=== PATIENT | female | born 1990 | race African-American/Black ===

== ENCOUNTER 2016-11-09 09:16 | Inpatient (IN) ==
[2016-11-09] MEDS ORDERED: KETOROLAC 30 MG/1 ML VIAL IV STA (09:47)
--- NOTE | 2016-11-09 09:51 | Emergency Department Note ---
Arrival - Arrival Chief Complaint: Abdominal / Flank Pain Stated Complaint: right and lower abd pain ED Nursing Triage Note: Pt c/o right sided abd pain since Feb which she was told it was a ovarian cyst. Pt was seen at [facility] yesterday but not given pain meds. Mode of Arrival: Wheelchair Limitations: No Limitations Source: Patient, RN Notes Reviewed Time Seen by Provider: 11/09/16 09:43 - History of Present Illness HPI Narrative: Patient is a 25-year-old black female seen today complaining of right lower quadrant abdominal pain which is been ongoing for 10 months. The patient states the pain became worse yesterday. Last normal menstrual period was 5 days ago. Patient states that she was seen yesterday at [facility] and underwent evaluation which included a CT scan of the abdomen and was told that she had an ovarian mass. Patient has had some nausea. She denies any vomiting. Patient was seen in the emergency department yesterday by Dr. Archuleta. The patient states that she did not undergo an ultrasound. Onset (ago): month(s) (10) Consistency: constant Severity: moderate, severe Date of Last Menstrual Period: went off yesterday Allergies/Adverse Reactions: Allergies Allergy/AdvReac Type Severity Reaction Status Date / Time No Known Allergies Allergy Verified 12/20/15 17:15 Home Medications: Home Medications Medication Instructions Recorded Confirmed Type No Known Home Medications [No 11/09/16 11/09/16 History Known Home Medications] Review of System - Review of System 12 point system: reviewed and no additional remarkable complaints except as stated Medical,Surgical,& Family Hx - Social History Smoking Status: Current every day smoker Exam Vital Signs: Vital Signs Temperature 99.5 F 11/09/16 09:54 Pulse Rate 96 H 11/09/16 09:54 Respiratory Rate 18 11/09/16 09:54 Blood Pressure 132/84 11/09/16 09:54 O2 Sat by Pulse Oximetry 100 11/09/16 09:22 GENERAL: This is a well-nourished well-developed obese white female in no apparent distress. VITAL SIGNS: Reviewed HEENT: Head is atraumatic and normocephalic. Pupils are equal round react to light. Extraocular movements are intact. Oropharynx is benign with moist mucous membranes. NECK: Neck is soft and supple without tenderness. There are no masses. There is no lymphadenopathy. LUNGS: Lungs are clear to auscultation. Chest rises symmetrically. There is no chest wall tenderness. CV: Heart is regular rate and rhythm without murmurs rubs or gallops. ABDOMEN: Abdomen is soft, tender to palpation the right lower quadrant without rebound or guarding. There are no abdominal abnormal masses palpated. There is no organomegaly. Bowel sounds are present and active. SKIN: Skin is warm and dry. No rash. EXTREMITIES: Patient has full range of motion without tenderness. There is no pedal edema. NEUROLOGIC: Awake alert and oriented. Cranial nerves II through XII are intact. Motor is 5 over 5 in all extremities bilaterally. Course Course Narrative: Records obtained from [facility] visit yesterday. - Consultations Consultation #1: Discussed with Dr. Greer. Patient will be admitted to his service. Initial orders written for him. He will assume care of the patient upon patient's arrival to the [facility]. Time: 11:34 Results - Labs Lab Results: I have reviewed the patients labs Labs: Laboratory Tests 11/09/16 11/09/16 10:33 10:33 Urine pH 7.0 Ur Specific Adams 1.012 Urine RBC <1 Urine WBC 2 Urine Test Negative - Diagnostic Findings Procedure: CT Abdomen and Pelvis: report reviewed by me (CT abdomen and pelvis performed at [facility] yesterday: Patient has large mass originating from the adnexa which appears to be 29 cm in size.), Ultrasound: report reviewed by me (Large right ovarian mass possible neoplasm. This measures 26 cm) Disposition Clinical Impression: Ovarian mass Case discussed with: patient, patient's family Disposition: Still a Patient Condition: Stable
[2016-11-09] MEDS ORDERED: KETOROLAC 30 MG/1 ML VIAL ONE (10:00)
--- NOTE | 2016-11-09 10:58 | Ultrasound Report ---
Exam: US pelvic complete, both transabdominal and transvaginal images Date: 11/09/2016 9:59 AM Comparison: None Indication: Ovarian mass Findings: Real-time ultrasound images are captured and archived. There is a large cystic right adnexal mass extending superior to the umbilical area. This mass measures 26 x 18 x 22 cm maximum dimensions. This has some moderate particularly internal debris and some mild mural nodularity. The right ovary is not seen separate from this mass. No masses of the uterus or left ovary are seen. No additional masses are seen. The exam was performed with transabdominal technique initially. Transvaginal images were obtained because of nonvisualization of the ovaries transabdominally. Uterus:9.1 cm x 3.1 cm x 4.4 cm Endometrial Thickness: Endometrial echo not seen Right ovary: Not seen separately from mass Left ovary:2.6 cmx3.8 cmx2 cm Free fluid: Moderate amount Bladder: Mildly distended but grossly unremarkable Impression: 26 cm complex right adnexal mass, presumably originating from the right ovary. This should be considered right ovarian neoplasm until proven otherwise. PROCEDURE INTERPRETED AT [facility] DEPARTMENT OF RADIOLOG[facility] Final Report Signed by: Dr. Brandy Hernandez
[2016-11-09 10:59] LABS: Apearance,Urine Slightly Hazy (Clear); Bilirubin,Urine Negative (Negative); Blood, Urine Negative (Negative); Glucose,Urine (UA) Negative (Negative); Ketones,Urine Negative (Negative); Mucus,Urine Occasional /LPF (Occasional); Nitrite,Urine Negative (Negative); Protein,Urine Negative; RBC,Urine <1 /HPF (0-4); Squamous Epithelial Cell,Urine Occasional /HPF (0-10); Urine Color Yellow (Yellow); Urine Specific Gravity 1.012 (1.001-1.035); Urine Urobilinogen < 2.0 EU/DL (0.2-1.0); WBC,Urine 2 /HPF (0-6)
[2016-11-09] MEDS ORDERED: HYDROmorphone 2 MG/1 ML VIAL IV STA (11:32)
[2016-11-09] MEDS ORDERED: ONDANSETRON 4 MG/2 ML VIAL IV STA (11:32)
[2016-11-09] MEDS ORDERED: HYDROmorphone 2 MG/1 ML VIAL ONE (11:33)
[2016-11-09] MEDS ORDERED: ONDANSETRON 4 MG/2 ML VIAL ONE (11:33)
[2016-11-09] MEDS ORDERED: ACETAMINOPHEN 325 MG TABLET PO PRN (13:17)
[2016-11-09] MEDS ORDERED: ONDANSETRON 4 MG/2 ML VIAL IV PRN (13:17)
[2016-11-09] MEDS ORDERED: BISACODYL 10 MG SUPP RECTAL PRN (13:17)
[2016-11-09] MEDS ORDERED: MAGNESIUM HYDROXIDE SUSP 30 ML UDCUP PO PRN (13:17)
[2016-11-09 13:39] LABS: Basophils % 0.1 % (0.0-0.8); Eosinophils # 0.3 10*3/uL (0.0-0.87); Eosinophils % 3.9 % (0.00-10.9); Hematocrit 33.8 VOL% (35.7-47.0); Hemoglobin 10.7 GM/DL (12.0-16.0); Immature Granulocytes % 0.3 %; Immature Granulocytes Absolute 0.02 #; Lymphocytes # 1.9 10*3/uL (1.4-4.0); Lymphocytes % 26.1 % (21.3-54.2); Mean Corpuscular HGB Conc 31.7 GM/DL (32-36); Mean Corpuscular Hemoglobin 25 PG (27-34); Mean Corpuscular Volume 78.1 FL (87-102); Monocytes # 0.4 10*3/uL (0.11-0.8); Monocytes % 5.6 % (1.7-12.7); Neutrophils # 4.6 10*3/uL (1.4-7.4); Platelet Count 264 T/CUMM (130-400); Red Blood Count 4.33 MC/CUMM (3.8-5.5); White Blood Count 7.1 T/CUMM (4-12)
[2016-11-09 13:55] LABS: INR 1.1; PT Patient Result 11.1 SECS
[2016-11-09] MEDS: LACTATED RINGERS 1,000 ML IV SCH ×2 (14:13→21:23)
[2016-11-09 14:19] LABS: Bilirubin,Total 0.5 MG/DL (0.2-1.0); Calcium 8.6 MG/DL (8.5-10.1); Osmolality,Calculated 274.5 MOS/KG (273-304); Potassium 3.9 MMOL/L (3.5-5.1); Total Protein 7.7 G/DL (6.4-8.3)
[2016-11-09] MEDS: HYDROmorphone 2 MG/1 ML VIAL IV PRN (15:37)
--- NOTE | 2016-11-09 18:16 | OB/GYN History & Physical ---
History of Present Illness Chief complaint: Pelvic pain with 26 cm right ovarian mass History of present illness: Ms. Gambino is a 25 year old female With history of 26 cm right ovarian mass. Patient is symptomatic and was seen in [facility] over the weekend and was told to follow-up with [facility]. Patient has been seen before in [place] and patient states that she was refused treatment because she did not have insurance. She consequently presented to [facility] emergency room with pelvic pain with confirmed 26 cm complex cystic mass encompassing and replacing the right ovary. She is consequently admitted for laparotomy with right ovarian cystectomy versus right salpingo-oophorectomy. Will have stent placement by in the morning. Will bowel prep the patient tonight. The risks benefits alternatives were explained patient detail and informed consent was attained for the above procedures and all the patient's and family's questions were answered to their satisfaction and agree with the course of management Home Medications Medication Instructions Recorded Confirmed Type No Known Home Medications [No 11/09/16 11/09/16 History Known Home Medications] Allergies Allergy/AdvReac Type Severity Reaction Status Date / Time No Known Allergies Allergy Verified 12/20/15 17:15 - Gastrointestinal Gastrointestinal: Present: abdominal pain Medical,Surgical,& Family Hx - Family History Family History: Denies;: Family Cancer, Family Diabetes, Family Heart Disease, Family Hematology, Family Hypertension, Family Psychiatric Problems - Social History Smoking Status: Current every day smoker Frequency of Alcohol Use: None Type of Drug Use: None Exam SLUBBER HAND - Constitutional Vitals: Vital Signs Temp Pulse Resp BP BP Pulse Ox 11/09/16 15:57 97.5 F L 18 97/49 11/09/16 12:56 85 18 138/89 98 11/09/16 09:54 99.5 F 96 H 18 132/84 11/09/16 09:22 99.5 F 96 H 24 132/84 100 General appearance: morbidly obese - Head Head exam: Present: normal inspection, normocephalic - Eye Eye exam: Present: EOMI - Neck Neck exam: Present: normal inspection - Respiratory Respiratory exam: Present: clear to auscultation bilaterally - Breast Breasts: as per HPI Menstruation: as per HPI - Cardiovascular Cardiovascular exam: Present: regular rate and rhythm - GI/Abdominal GI/Abdominal exam: Present: normal bowel sounds - Extremities Exam Extremities exam: Present: normal inspection, normal capillary refill - Back Exam Back exam: Present: normal inspection - Neurological Exam Neurological exam: Present: alert, oriented X3 - Psychiatric Psychiatric exam: Present: normal affect, normal mood - Skin Skin exam: Present: normal color, warm Assessment and Plan (1) Pelvic pain in female Status: Acute Current Visit: Yes (2) Complex cyst of right ovary Status: Acute Current Visit: Yes Results - Labs CBC & BMP: 11/09/16 13:32 11/09/16 13:32
--- NOTE | 2016-11-09 19:00 | Urology Consultation ---
Assessment and Plan - Time spent with patient Time spent with patient: Less than 30 minutes (1) Ovarian mass Status: Acute Assessment and plan: She has a complex cystic mass replacing the right ovary measuring up to [address] Greer is planning for surgery tomorrow. I have been asked for cystoscopy with stent placement prior. I have had a discussion today with her. She understands the risks, benefits, and alternatives. She understands that the stent allows for better identification. I have explained that with a cystic mass is often significant amount of desmoplastic and inflammatory changes. The stent does not prevent any injury, as sometimes this is unavoidable. It will allow better identification of injury, and hopefully repair if needed. She is n.p.o. after midnight. Her urinalysis is unremarkable for UTI. I discussed with Dr. Peterson in the morning, and will try to coordinate. Plan for cystoscopy with ureteral stent placement. Likely I will leave a string, and if procedure goes well her stent may be removed postoperative. Thanks for the opportunity to participate in her care. Current Visit: Yes History of Present Illness - Data of Consult Patient: new to practice Consult date: 11/09/16 Requesting Physician: Aaron Greer - Consult Narrative History of present illness: Ms. Gambino is a 25 year old female who is admitted for a complex cystic ovarian mass. She reports she is having pain and diagnosis for several months. She notes that her first symptoms started in February. She has been seen by several hospitals, but had not had treatment due to insurance problems. She had a CT scan at [facility] on November 06, 2016, and report indicates no hydronephrosis but a 29 cm right sided pelvic mass. She reports some right sided abdominal pain and occasional right flank pain. She denies gross hematuria. She denies urinary voiding symptoms. No dysuria, hematuria, frequency, urgency, or urinary incontinence. She reports 1 prior D&C in the past. She denies prior . She does have a history of smoking. She denies any significant family history of urologic problems. Due to this large pelvic mass I was consulted for cystoscopy with stent placement prior to her gynecologic procedure. CC: Elmer Castillo Right sided pelvic mass - Home Medications and Allergies Home Medications: Home Medications Medication Instructions Recorded Confirmed Type No Known Home Medications [No 11/09/16 11/09/16 History Known Home Medications] Allergies/Adverse Reactions: Allergies Allergy/AdvReac Type Severity Reaction Status Date / Time No Known Allergies Allergy Verified 12/20/15 17:15 Medical,Surgical,& Family Hx - Medical History Hematology: History of: Anemia Reproductive: History of: Ovarian Cysts - Surgical History Reproductive Surgeries: Surgical HX of;: Dilation and Curettage - Family History Family History: Denies;: Family Cancer, Family Diabetes, Family Heart Disease, Family Hematology, Family Hypertension, Family Psychiatric Problems - Social History Smoking Status: Current every day smoker Frequency of Alcohol Use: None Type of Drug Use: None 12 point system: reviewed and no additional remarkable complaints except as stated - Constitutional Constitutional: Present: fatigue - Gastrointestinal Gastrointestinal: Present: abdominal pain, bloating - Genitourinary Genitourinary: Absent: difficulty urinating, dysuria, flank pain, hematuria Exam - Constitutional Vitals: Period Temp Pulse Resp BP Sys/Coleman Pulse Ox Last 24 Hr 97.5 F-99.5 F 85-96 18-24 97-138/49-89 98-100 General appearance: no acute distress, morbidly obese - Head Head exam: Present: normal inspection, normocephalic - Eye Eye exam: Present: EOMI. Absent: scleral icterus - ENT ENT exam: Present: normal oropharynx - Neck Neck exam: Present: normal inspection. Absent: lymphadenopathy - Respiratory Respiratory exam: Present: clear to auscultation bilaterally. Absent: rales, rhonchi - Cardiovascular Cardiovascular exam: Present: regular rate and rhythm. Absent: JVD - GI/Abdominal GI/Abdominal exam: Present: normal bowel sounds, tenderness (Mild right sided abdominal pain), soft. Absent: rebound - Genitourinary Genitourinary: external genitalia normal - Extremities Exam Extremities exam: Present: normal inspection. Absent: calf tenderness - Back Exam Back exam: Absent: CVA tenderness (L), CVA tenderness (R) - Neurological Exam Neurological exam: Present: alert, oriented X3 - Psychiatric Psychiatric exam: Present: normal affect, normal mood - Skin Skin exam: Present: warm, dry Results - Labs CBC & BMP: 11/09/16 13:32 11/09/16 13:32 Lab Results: I have reviewed the past 24 hour labs - Diagnostic Findings Procedure: CT Abdomen and Pelvis: report reviewed by me (CT report from [facility] on November 06, 2016. I have no images to review of this. No hydronephrosis or urinary obstruction noted), Ultrasound: image reviewed by me ( Reviewed pelvic ultrasound with large right sided cystic mass)
[2016-11-09] MEDS: SODIUM PHOSPHATE ENEMA 133 ML BOTTLE RECTAL PRN ×2 (21:22→22:39)
[2016-11-09] MEDS: DOCUSATE SODIUM 100 MG CAPSULE PO SCH (21:23)
[2016-11-10] MEDS: HYDROmorphone 2 MG/1 ML VIAL IV PRN ×7 (02:35→18:26)
--- NOTE | 2016-11-10 06:53 | Urology Progress Note ---
Assessment and Plan - Time spent with patient Time spent with patient: Less than 30 minutes (1) Ovarian mass Status: Acute Assessment and plan: She has a complex cystic mass replacing the right ovary measuring up to [address] Greer is planning for surgery today. I have been asked for cystoscopy with stent placement prior. I have had a discussion with her. She understands the risks, benefits, and alternatives. She understands that the stent allows for better identification of the ureter. I have explained that with a cystic mass is often significant amount of desmoplastic and inflammatory changes. The stent does not prevent any injury, as sometimes this is unavoidable. It will allow better identification of injury, and hopefully repair if needed. She is n.p.o. after midnight. Her urinalysis is unremarkable for UTI. Will try to coordinate. Plan for cystoscopy with ureteral stent placement. Likely I will leave a string, and if procedure goes well her stent may be removed postoperative. I have clinic this morning, and I will go ahead with stent placement if timing allows. 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 Thanks for the opportunity to participate in her care. Current Visit: Yes Urology - PN: Subj Interval history: She reports she is n.p.o. She is ready for surgery today. She denies any problems overnight. The nurses report that she is rested most of the night. Exam - Constitutional Vitals: Period Temp Pulse Resp BP Sys/Coleman Pulse Ox Last 24 Hr 97.5 F-99.5 F 85-96 18-24 97-151/49-89 97-100 General appearance: no acute distress, morbidly obese - Head Head exam: Present: normal inspection, normocephalic - Eye Eye exam: Present: EOMI - ENT ENT exam: Present: normal oropharynx - Neck Neck exam: Present: normal inspection - Respiratory Respiratory exam: Present: clear to auscultation bilaterally. Absent: rhonchi, stridor - Cardiovascular Cardiovascular exam: Present: regular rate and rhythm. Absent: JVD - GI/Abdominal GI/Abdominal exam: Present: soft. Absent: guarding, rebound - Genitourinary Genitourinary: external genitalia normal - Extremities Exam Extremities exam: Present: normal inspection, normal capillary refill - Back Exam Back exam: Absent: CVA tenderness (L), CVA tenderness (R) - Neurological Exam Neurological exam: Present: alert, oriented X3 - Psychiatric Psychiatric exam: Present: normal affect, normal mood Results - Labs CBC & BMP: 11/09/16 13:32 11/09/16 13:32 Lab Results: I have reviewed the past 24 hour labs
[2016-11-10] MEDS ORDERED: ROCURONIUM 100 MG/10 ML VIAL IV ONE (09:00)
[2016-11-10] MEDS ORDERED: NEOSTIGMINE 10 MG/10 ML VIAL ONE (09:00)
[2016-11-10] MEDS ORDERED: METOPROLOL TARTRATE 5 MG/5 ML VIAL IV ONE (09:00)
[2016-11-10] MEDS ORDERED: DESFLURANE 1 UNIT/15 MINUTE INH ONE ×2 (09:00→14:29)
[2016-11-10] MEDS ORDERED: DEXAMETHASONE 10 MG/1 ML VIAL ONE (09:00)
[2016-11-10] MEDS ORDERED: LIDOCAINE 2% 5 ML VIAL ONE (09:00)
[2016-11-10] MEDS ORDERED: GLYCOPYRROLATE 0.4 MG/2 ML VIAL ONE (09:00)
[2016-11-10] MEDS ORDERED: ONDANSETRON 4 MG/2 ML VIAL ONE (09:00)
[2016-11-10] MEDS ORDERED: SEVOFLURANE 1 UNIT/15 MINUTE INH ONE ×2 (09:00→14:29)
[2016-11-10] MEDS ORDERED: PROPOFOL 200 MG/20 ML VIAL IV ONE (09:00)
[2016-11-10] MEDS: DOCUSATE SODIUM 100 MG CAPSULE PO SCH ×2 (09:08→20:21)
[2016-11-10] MEDS: LACTATED RINGERS 1,000 ML IV SCH ×5 (09:11→20:19)
[2016-11-10] MEDS ORDERED: DIAZEPAM 5 MG TABLET PO ONE (09:28)
[2016-11-10] MEDS ORDERED: PANTOPRAZOLE 40 MG TABLET PO ONE (09:28)
--- NOTE | 2016-11-10 12:07 | Operative Note ---
Date of procedure: 11/10/16 Pre-op diagnosis: right pelvic mass Post-op diagnosis: same Procedure: Cystoscopy with bilateral ureteral stent placement Indication: 25-year-old female with a large pelvic mass that appears to be over 26 cm right ovarian pelvic mass. Due to the large nature of this pelvic mass of been asked to place stents prior to her gynecologic exploration and removal of pelvic mass. Patient was counseled, and she understands the risks, benefits , alternatives. She understands this does not prevent any injury but does help to identify the ureter and possibly early identification of injury. She was counseled that at times an injury is unavoidable due to the inflammatory changes , and she understands that she would need repair in the future. Procedure detail: This 25-year-old female brought to the OR after informed consent. She is placed supine on operating table. Proper monitoring devices and SCDs in place of function prior sure of the case. She received antibiotics preoperatively. She was moved in dorsal lithotomy position and her genitalia was prepped and draped in standard fashion. Operative timeout was performed. A 22 Turkmen rigid cystoscope was used to intubate the urethral meatus. She had a normal female urethra. The bladder was surveyed with no significant masses noted. No foreign bodies. Orthotopic UOs bilaterally were noted effluxing clear urine. Initially on the right side a 0.035 Glidewire was passed with ease up into the kidney. This was done without fluoroscopy. Placed by feel. Once the wire reached resistance within place a 6 Turkmen by 24 cm double-J stent with a strain. This was repeated on the left side. Both stents were in place with a good curl distally. They went easily without any resistance. Strings were secured to the thigh. A Guo cath was placed at the conclusion of the case. Plan: I discussed with Dr. Peterson, and if there is no indication of ureteral injury he will plan to pull the stent site conclusion of the case. Implants: 6 fr x 24 cm bilateral JJ ureteral stents on string Anesthesia: ERNESTO Surgeon / Physician: Paul Olvera Estimated blood loss: none Specimens: other (urine culture- (per protocol)) Condition: stable Disposition: other (Case turned over to Dr. Peterson) Results - Labs CBC & BMP: 11/09/16 13:32 11/09/16 13:32 Lab Results: I have reviewed the past 24 hour labs Discharge Plan - Discharge Medications No Action No Known Home Medications [No Known Home Medications] - Follow Up or Referral - Forms/Instructions
[2016-11-10] MEDS ORDERED: DOCUSATE SODIUM 100 MG CAPSULE PO PRN (13:39)
[2016-11-10] MEDS ORDERED: BISACODYL 10 MG SUPP RECTAL PRN (13:39)
[2016-11-10] MEDS ORDERED: ACETAMINOPHEN 325 MG TABLET PO PRN (13:39)
[2016-11-10] MEDS ORDERED: MAGNESIUM HYDROXIDE SUSP 30 ML UDCUP PO PRN (13:39)
[2016-11-10] MEDS ORDERED: IBUPROFEN 800 MG TABLET PO PRN (13:39)
[2016-11-10] MEDS ORDERED: ONDANSETRON 4 MG/2 ML VIAL IV PRN ×2 (13:39→14:07)
--- NOTE | 2016-11-10 13:39 | Operative Note ---
Date of procedure: 11/10/16 Pre-op diagnosis: 26 cm right adnexal mass complex cystic on ultrasound nulligravida Post-op diagnosis: same Procedure: Exploratory laparotomy with removal of right pelvic mass and right nephrectomy After the risks benefits and alternatives were explained patient detail and informed consent was obtained and after the patient had been bowel prepped the night before she was taken to the operating room where she was placed in the supine position. After achieving appropriate general endotracheal anesthesia the perineum vagina and abdomen were prepped and draped in usual sterile fashion. Guo catheter placed reveal clear urine. After the appropriate time out midline incision was made using #15 knife around the umbilicus on the right side. Dissection was carried out is the subcutaneous tissue using Bovie electrocautery down the fascia. The fascia was incised longitudinally and to Pradeep clamps were used to elevate the rectus fascia and it was dissected superiorly and inferiorly using Bovie electrocautery. Peritoneum was identified and entered bluntly using finger dissection. Peritoneal incision was carried both superiorly and inferiorly mentioned above the bladder below. There is noted to be a large complex thick- walled ovarian mass extending past the umbilicus to the level of the liver. The incision was extended to accommodate removal. It was delivered through the abdominal wall its pedicle was noted to be attached to the right adnexa and originating from the right ovary. The right tube was spared slightly curved Z- Clamp were used to doubly crossclamped the pedicle at its base and it was ligated using #1 Monocryl suture in a transfixion fashion followed by a #1 Monocryl in a Zuniga suture. Hemostasis noted be excellent. Pelvis was copiously irrigated. The omentum was visualized there is noted to be no abnormality or caking. The bowel was inspected was no abnormality. The left ovary. Be within normal limits. Uterus was nulligravida. All areas are noted to be hemostatic a 10 flat JOANNA drain was placed in the right mid quadrant subfascial into the peritoneum and the fascia and peritoneum closed en bloc using #1 looped PDS in a running fashion beginning at both angles are dropped slightly midline. The subcutaneous tissue was irrigated and made hemostatic and closed in 2 layers using 2-0 Vicryl suture in a running fashion. The skin was closed with skin edward sterile pressure bandage applied the wound. The subfascial drain was anchored at the skin using 2-0 nylon suture. All sponge needle and insert counts correct times during the procedure. 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 Anesthesia: GETA Surgeon / Physician: Aaron Greer Estimated blood loss: other (100 cc) Specimens: other (Right ovary to pathology) Condition: stable Disposition: floor Results - Labs CBC & BMP: 11/09/16 13:32 11/09/16 13:32 Discharge Plan - Discharge Medications No Action No Known Home Medications [No Known Home Medications] - Follow Up or Referral - Forms/Instructions
[2016-11-10] MEDS ORDERED: HYDROmorphone 2 MG/1 ML VIAL ONE (13:56)
[2016-11-10] MEDS ORDERED: LACTATED RINGERS 1,000 ML IV SCH (14:00)
[2016-11-10] MEDS ORDERED: MIDAZOLAM 2 MG/2 ML VIAL ONE (14:30)
[2016-11-10] MEDS ORDERED: KETOROLAC 30 MG/1 ML VIAL IV ONE (14:30)
[2016-11-10] MEDS ORDERED: fentaNYL 100 MCG/2 ML VIAL ONE ×2 (14:30)
[2016-11-10] MEDS ORDERED: LACTATED RINGERS 2,000 ML IV ONE (14:31)
[2016-11-10] MEDS ORDERED: MEPERIDINE 25 MG/1 ML VIAL IM ONE (14:31)
[2016-11-10] MEDS ORDERED: ACETAMINOPHEN 1,000 MG/100 ML VIAL IV ONE (14:31)
[2016-11-10] MEDS ORDERED: MEPERIDINE 25 MG/1 ML VIAL IV ONE (14:32)
[2016-11-10] MEDS ORDERED: KETOROLAC 30 MG/1 ML VIAL ONE (14:33)
[2016-11-10] MEDS ORDERED: MEPERIDINE 25 MG/1 ML VIAL ONE (14:33)
[2016-11-10 14:43] LABS: Apearance,Urine CLEAR (Clear); Bilirubin,Urine Negative (Negative); Blood, Urine Moderate mg/dL (Negative); Glucose,Urine (UA) Negative (Negative); Ketones,Urine Negative (Negative); Mucus,Urine Occasional /LPF (Occasional); Nitrite,Urine Negative (Negative); Protein,Urine Negative; RBC,Urine 12 /HPF (0-4); Squamous Epithelial Cell,Urine Occasional /HPF (0-10); Urine Color Colorless (Yellow); Urine Specific Gravity 1.004 (1.001-1.035); Urine Urobilinogen < 2.0 EU/DL (0.2-1.0); WBC,Urine 1 /HPF (0-6)
--- NOTE | 2016-11-10 17:41 | OB/GYN Progress Note ---
Assessment and Plan (1) Pelvic pain in female Status: Acute Current Visit: Yes (2) Complex cyst of right ovary Status: Acute Current Visit: Yes [facility] - PN: Subj Interval history: She has no complaints she is tolerating liquids she is alert and oriented -3 She is afebrile and her vital signs are stable Cardiovascular regular rhythm Lungs clear to auscultation HEENT conjunctivae are pink extremities good refill no bleeding Assessment #1 day of surgery doing well Plan continue progressive care Exam [facility] - Constitutional Vitals: Vital Signs Temp Pulse Pulse Resp BP Pulse Ox Pulse Ox 11/10/16 15:15 98.5 F 98 H 22 157/100 97 11/10/16 14:53 98.5 F 99 H 24 152/101 99 11/10/16 14:42 96 H 24 153/104 99 11/10/16 14:32 115 H 28 H 159/101 100 11/10/16 14:22 106 H 26 H 156/98 98 11/10/16 14:12 104 H 25 H 179/107 94 L 11/10/16 14:02 99 H 24 164/106 94 L 11/10/16 13:57 105 H 28 H 163/112 93 L 11/10/16 13:52 96 H 20 145/88 94 L 11/10/16 13:47 97.4 F L 101 H 20 144/109 93 L 11/10/16 08:00 98.4 F 82 20 118/72 11/10/16 05:05 91 H 20 151/59 97 11/10/16 03:00 18 11/09/16 23:20 97.9 F 20 146/78 100 11/09/16 19:42 97.6 F 18 133/66 Results - Labs CBC & BMP: 11/09/16 13:32 11/09/16 13:32
[2016-11-10] MEDS: oxyCODONE/ACETAMINOPHEN 5-325 MG TABLET PO PRN (21:37)
[2016-11-10] MEDS: ceFAZolin 2,000 MG in SODIUM CHLORIDE 0.9% 100 ML IV SCH (22:36)
[2016-11-11] MEDS: HYDROmorphone 2 MG/1 ML VIAL IV PRN ×4 (00:38→21:31)
[2016-11-11] MEDS: LACTATED RINGERS 1,000 ML IV SCH ×3 (04:33→23:52)
[2016-11-11] MEDS: ceFAZolin 2,000 MG in SODIUM CHLORIDE 0.9% 100 ML IV SCH (06:49)
--- NOTE | 2016-11-11 07:09 | Urology Progress Note ---
Assessment and Plan (1) Ovarian mass Status: Acute Assessment and plan: Stents removed at bedside intact this am. D/w pt to expect some dysuria. Hematuria should improve. Hale left in place for now- would D/C when pt mobilized or Dr Greer feels he wants to remove it. Ok for removal from standpoint. Please call with questions or concerns. I will not round on her daily. Follow up prn. Thanks for the opportunity to participate in her care. Current Visit: Yes Urology - PN: Subj Interval history: No acute events. Feeling better. Some pain, as expected. Urine clearing with mild hematuria consistent with stent irritation. Exam - Constitutional Vitals: Period Temp Pulse Resp BP Sys/Coleman Pulse Ox Last 24 Hr 97.4 F-98.6 F 79-115 18-28 106-179/60-112 92-100 General appearance: no acute distress, morbidly obese - Head Head exam: Present: normal inspection, normocephalic - ENT ENT exam: Present: normal oropharynx - Neck Neck exam: Present: normal inspection - Respiratory Respiratory exam: Present: decreased breath sounds. Absent: accessory muscle use, stridor - Cardiovascular Cardiovascular exam: Present: regular rate and rhythm. Absent: JVD - GI/Abdominal GI/Abdominal exam: Present: tenderness (appropriately), soft. Absent: rebound - Genitourinary Genitourinary: external genitalia normal, other (hale with light blood tinged urine- stent strings attached to left thigh) - Extremities Exam Extremities exam: Present: normal capillary refill - Back Exam Back exam: Absent: CVA tenderness (L), CVA tenderness (R) - Neurological Exam Neurological exam: Present: alert, oriented X3 - Psychiatric Psychiatric exam: Present: normal affect, normal mood - Skin Skin exam: Present: normal color, dry Results - Labs CBC & BMP: 11/09/16 13:32 11/09/16 13:32 Lab Results: I have reviewed the past 24 hour labs
[2016-11-11 07:22] LABS: Basophils % 0.1 % (0.0-0.8); Hematocrit 33.3 VOL% (35.7-47.0); Hemoglobin 10.6 GM/DL (12.0-16.0); Immature Granulocytes % 0.2 %; Immature Granulocytes Absolute 0.02 #; Lymphocytes # 1.2 10*3/uL (1.4-4.0); Lymphocytes % 11.4 % (21.3-54.2); Mean Corpuscular HGB Conc 31.8 GM/DL (32-36); Mean Corpuscular Hemoglobin 25 PG (27-34); Mean Corpuscular Volume 77.6 FL (87-102); Mean Platelet Volume 9.4 FL (9.6-12.0); Monocytes # 0.6 10*3/uL (0.11-0.8); Neutrophils # 8.4 10*3/uL (1.4-7.4); Neutrophils % 82.3 % (38.7-73.9); Platelet Count 268 T/CUMM (130-400); Red Blood Count 4.29 MC/CUMM (3.8-5.5); Red Cell Distribution Width 15.8 % (9.3-17.3); White Blood Count 10.3 T/CUMM (4-12)
[2016-11-11] MEDS: DOCUSATE SODIUM 100 MG CAPSULE PO SCH ×2 (08:01→21:32)
--- NOTE | 2016-11-11 08:23 | OB/GYN Progress Note ---
Assessment and Plan (1) Pelvic pain in female Status: Acute Current Visit: Yes (2) Complex cyst of right ovary Status: Acute Current Visit: Yes HAND RIVETER - PN: Subj Interval history: This is postop day #1 from laparotomy with right salpingo-nephrectomy and removal of large pelvic mass Patient is doing well she is tolerating liquids. She denies flatus at this time. She is afebrile her vital signs are stable Lungs are clear to auscultation Abdomen soft nondistended with diminished bowel sounds incision is dry and intact Postop H&H is pending Assessment #1 postop day #1 doing well Plan #1 continue present management #2 Lovenox for out a DVT prophylaxis #3 continue liquid diet #4 DC Guo #5 ambulate Exam HAND RIVETER - Constitutional Vitals: Vital Signs Temp Pulse Pulse Resp BP Pulse Ox Pulse Ox 11/11/16 08:00 97.8 F 93 H 18 138/84 94 L 11/11/16 04:25 97.9 F 79 18 106/60 96 11/10/16 23:55 98.0 F 84 20 153/81 95 11/10/16 20:00 98 F 95 H 18 136/84 96 11/10/16 18:24 98.6 F 97 H 20 151/96 93 L 11/10/16 17:24 98.5 F 98 H 20 150/90 92 L 11/10/16 16:24 98.5 F 99 H 20 143/85 92 L 11/10/16 16:00 98.6 F 86 20 148/86 93 L 11/10/16 15:24 98.5 F 98 H 22 157/100 92 L 11/10/16 15:15 98.5 F 98 H 22 157/100 97 11/10/16 14:53 98.5 F 99 H 24 152/101 99 11/10/16 14:42 96 H 24 153/104 99 11/10/16 14:32 115 H 28 H 159/101 100 11/10/16 14:22 106 H 26 H 156/98 98 11/10/16 14:12 104 H 25 H 179/107 94 L 11/10/16 14:02 99 H 24 164/106 94 L 11/10/16 13:57 105 H 28 H 163/112 93 L 11/10/16 13:52 96 H 20 145/88 94 L 11/10/16 13:47 97.4 F L 101 H 20 144/109 93 L Results - Labs CBC & BMP: 11/11/16 05:59 11/09/16 13:32
[2016-11-11] MEDS: ENOXAPARIN 40 MG/0.4 ML SYRINGE SUBCUT SCH (09:23)
[2016-11-11] MEDS: BENZOCAINE/MENTHOL LOZENGE 18/BOX PO PRN (14:27)
[2016-11-11] MEDS ORDERED: SIMETHICONE CHEW 80 MG TABLET PO PRN (19:16)
[2016-11-12] MEDS: DOCUSATE SODIUM 100 MG CAPSULE PO SCH ×2 (07:59→20:40)
[2016-11-12] MEDS: ENOXAPARIN 40 MG/0.4 ML SYRINGE SUBCUT SCH (08:10)
[2016-11-12] MEDS: BENZOCAINE/MENTHOL LOZENGE 18/BOX PO PRN (08:12)
[2016-11-12] MEDS: LACTATED RINGERS 1,000 ML IV SCH ×2 (08:15→19:22)
--- NOTE | 2016-11-12 08:44 | OB/GYN Progress Note ---
Assessment and Plan (1) Pelvic pain in female Status: Acute Current Visit: Yes (2) Complex cyst of right ovary Status: Acute Current Visit: Yes [employer]ENDER - PN: Subj Interval history: Patient is doing well. She is tolerating her diet. She is alert and oriented -3 Cardiovascular regular rate and rhythm Lungs clear to auscultation Abdomen soft with appropriate tenderness and bowel sounds are present and her incision is dry no bleeding Is good refill HEENT shows pink conjunctiva assessment 1 postop day #2 doing well Plan continue present management with expected DC in a.m. Exam [employer]MENT TENDER - Constitutional Vitals: Vital Signs Temp Pulse Resp BP Pulse Ox Pulse Ox Pulse Ox 11/12/16 07:42 98.9 F 103 H 20 95/53 96 11/12/16 05:34 20 11/12/16 04:00 98.9 F 104 H 20 123/71 96 11/12/16 03:14 20 11/11/16 23:52 98.7 F 105 H 20 136/70 95 11/11/16 20:00 98.4 F 97 H 20 132/76 95 11/11/16 16:00 98.2 F 98 H 20 129/77 11/11/16 11:47 97.8 F 98 H 18 128/74 96 Results - Labs CBC & BMP: 11/11/16 05:59 11/09/16 13:32
--- NOTE | 2016-11-12 08:47 | Discharge Summary ---
Hospital Course - Hospital Course Hospital Course: Postoperatively the patient did well. She had quick return of bowel and bladder function. She remained afebrile and normotensive throughout her hospitalization. She is consequently discharged on postoperative day #3 on a regular diet. Her discharge medication included Percocet for pain. She was given bleeding and infection cautions instructed maintain pelvic rest and limited activity and instructed to return office in 1 week for follow-up Diagnosis - Discharge Diagnosis (1) Pelvic pain in female Status: Acute (2) Complex cyst of right ovary Status: Acute Discharge Plan - Discharge Data Disposition: Disch To Home/Self Care Condition at Discharge: Stable Discharge Diet: regular diet Activity: increase activity as tolerated, no lifting, other (Pelvic rest) Hygiene: may shower Weight Bearing at Discharge: full weight bearing Driving: not until seen by doctor Contact your physician if you experience:: fever over 101, Difficulty voiding, Redness or swelling, Nausea/Vomiting, Shortness of breath, Bleeding, pain uncontrolled by pain medications - Discharge Medications New oxyCODONE/ACETAMINOPHEN 5-325 [Percocet 5-325] 1 tablet PO Q4H PRN #20 tablet PRN Reason: Pain Severe (8-10) Acetaminophen Tab [Tylenol Tab] 325 mg PO Q4H PRN tablet PRN Reason: Fever, Headache, Mild Pain Ibuprofen Tab [Motrin Tab] 800 mg PO Q8H PRN tablet PRN Reason: Pain Mild To Moderate (1-7) - Follow Up or Referral Follow Up: Aaron Greer MD [Physician] - 2 Weeks - Forms/Instructions Exam - Constitutional Vitals: Period Temp Pulse Resp BP Sys/Coleman Pulse Ox Last 24 Hr 97.8 F-98.9 F 97-105 18-20 95-136/53-77 95-96 DS: Provider Date of admission: 11/09/16 11:39 Primary care physician: . No PCP Attending physician on admission: Elmer Castillo Consults: 11/09/16 18:24 Consult to Physician [CONS] Routine Comment: stent placement Consulting Provider: Paul Olvera 11/09/16 19:05 Consult to Anesthesiology [CONS] Routine Consulting Provider: Reason for Anesthesiology: Pre-op Clearance Discharging clinician: Elmer Castillo
[2016-11-12] MEDS: HYDROmorphone 2 MG/1 ML VIAL IV PRN ×2 (12:38→18:49)
[2016-11-12] MEDS: oxyCODONE/ACETAMINOPHEN 5-325 MG TABLET PO PRN (17:14)
[2016-11-13] MEDS: LACTATED RINGERS 1,000 ML IV SCH (03:14)
[2016-11-13] MEDS: HYDROmorphone 2 MG/1 ML VIAL IV PRN (04:42)
[2016-11-13] MEDS: DOCUSATE SODIUM 100 MG CAPSULE PO SCH (08:52)
[2016-11-13] MEDS: ENOXAPARIN 40 MG/0.4 ML SYRINGE SUBCUT SCH (08:54)
[2016-11-13 11:47] VITALS: BP 130/78
--- NOTE | 2016-11-16 18:16 | Pathology Report from [facility] ---
[facility] ACCESSION # : [id number] PATIENT NAME : Lizabeth Whitehead ORDERING DR : PRITI ALFORD MD CLINICAL HX: Right ovarian cyst complex POST-OP DX: Same SPECIMEN INFO: Right ovarian cyst GROSS DESCRIPTION: Received fresh for frozen section labeled with the patients name and consists of a 28.5 x 21.0 x 16.5 cm large ovarian cystic mass weighing 5400 grams. The serosa is smooth and pink-alvarado with a segment of a possible unfimbriated fallopian tube noted measuring 4.0 x 0.5 cm. Opening the specimen reveals numerous papillary exrescencies covering approximately 50% of the surface area of the lining. The cyst is also filled with brown-alvarado mucoid material. [facility] Marriage And Family sections of the exrescencies are submitted for frozen section in cassettes FSA and FSB, permanent sections submitted in cassettes C thru I, possible fallopian tube submitted in cassette J. 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 COLLECTED DATE: 11/10/2016 [facility] REPORT DATE: 11/16/2016 ELECTRONICALLY SIGNED BY: Thuy Perez M.D. 11/16/2016 - 15:09:08 SUMANTH
== END 2016-11-13 12:01 | disposition home or self-care (01) | DRG 742 ==
LOC: N.ED 09:16 → N.EDINP 11:39 → N.2E 12:42
PROVIDERS: ADMIT Specialist; ATTEND Specialist